=== PATIENT | female | born 1970 | race Caucasian/White ===

== ENCOUNTER 2024-09-03 15:18 | Inpatient (IN) | payer MEDICAID, OTHER ==
[~2024-09-03] VITALS: Ht 162.6 cm; Wt 75.7 kg
[2024-09-03 15:30] VITALS: BP 140/89; PULSE 75; RESP 16; TEMP 98; O2SAT 98
[2024-09-03 16:12] LABS: BASOPHILS # (AUTO) 0.1 K/uL (0.00-0.22); BASOPHILS % (AUTO) 0.7 % (0.0-2.0); EOSINOPHILS # (AUTO) 0.2 K/uL (0-0.4); EOSINOPHILS % (AUTO) 2.6 % (0.0-4.0); HEMATOCRIT 41.8 % (36-48); LYMPHOCYTES # (AUTO) 1.6 K/uL (2.5-16.5); MEAN CORPUSCULAR HEMOGLOBIN 29 pg (27-31); MEAN CORPUSCULAR HGB CONC 34 g/dL (33-37); MEAN CORPUSCULAR VOLUME 85.7 fL (80-94); MONOCYTES # (AUTO) 0.5 K/uL (0.8-1.0); MONOCYTES % (AUTO) 5.8 % (1.7-9.3); NEUTROPHILS # (AUTO) 6.4 K/uL (1.8-7.7); NEUTROPHILS % (AUTO) 72.9 % (42.2-75.2); PLATELET COUNT (AUTO) 254 K/uL (140-450); RED BLOOD CELL COUNT(AUTO) 4.88 MIL/uL (4.20-5.40); RED CELL DISTRIBUTION WIDTH 14.2 % (11.6-13.7); WHITE BLOOD COUNT (AUTO) 8.8 K/uL (4.8-10.8)
[2024-09-03 16:27] LABS: ANION GAP 10.2 (8-16); CALCIUM 8.8 mg/dL (8.5-10.1); CARBON DIOXIDE 29.8 mmol/L (21-32); CREATININE 0.9 mg/dL (0.6-1.3)
[2024-09-03 16:57] LABS: APPEARANCE,URINE CLEAR (CLEAR); BILIRUBIN,URINE NEGATIVE (NEGATIVE); BLOOD, URINE NEGATIVE (NEGATIVE); COLOR,URINE YELLOW (YELLOW); LEUKOCYTE ESTERASE ,URINE NEGATIVE (NEGATIVE); NITRITE, URINE NEGATIVE (NEGATIVE); PROTEIN,URINE NEGATIVE (NEGATIVE); UGLUCOSE NEGATIVE (NEGATIVE); UROBILINOGEN,URINE 0.2 EU/dL (0.2 - 1)
[2024-09-03 17:17] LABS: INR 0.99 (0.8-1.2); PARTIAL THROMBOPLASTIN TIME 27.4 secs (22-35.6); PROTHROMBIN TIME 10.4 secs (10.8-13.4)
[2024-09-03] MEDS: ASPIRIN 325 MG TAB PO ONE (18:03)
[2024-09-03] MEDS: CLOPIDOGREL 75 MG TAB PO ONE (18:05)
[2024-09-03] MEDS ORDERED: ONDANSETRON 4 MG/2 ML VIAL IVP PRN (18:40)
[2024-09-03] MEDS ORDERED: ZOLPIDEM 5 MG TAB PO PRN (18:40)
[2024-09-03] MEDS ORDERED: ACETAMINOPHEN 325 MG TAB PO PRN (18:40)
[2024-09-03] MEDS ORDERED: LORazepam 1 MG TAB PO PRN (18:40)
[2024-09-03 20:50] VITALS: BP 144/78; PULSE 55; PULSE 56; RESP 16; TEMP 97.6; O2SAT 97
[2024-09-03] MEDS: ATORVASTATIN 20 MG TAB PO SCH (21:17)
[2024-09-04] VITALS (7 sets, daily range): BP systolic 121–151; BP diastolic 71–83; PULSE 54–70; RESP 16–18; TEMP 97.2–98.9; O2SAT 95–99
[2024-09-04] MEDS: ASPIRIN 81 MG TAB.CHEW PO SCH (08:28)
[2024-09-04] MEDS: DOCUSATE SODIUM 100 MG GELCAP PO SCH (08:28)
[2024-09-04 16:03] LABS: BASOPHILS # (AUTO) 0.1 K/uL (0.00-0.22); BASOPHILS % (AUTO) 0.8 % (0.0-2.0); EOSINOPHILS # (AUTO) 0.4 K/uL (0-0.4); EOSINOPHILS % (AUTO) 4.3 % (0.0-4.0); HEMATOCRIT 40.3 % (36-48); HEMOGLOBIN 13.6 g/dL (12.0-16.0); LYMPHOCYTES # (AUTO) 1.7 K/uL (2.5-16.5); LYMPHOCYTES % (AUTO) 18.9 % (20.5-51.1); MEAN CORPUSCULAR HEMOGLOBIN 29 pg (27-31); MEAN CORPUSCULAR HGB CONC 34 g/dL (33-37); MEAN CORPUSCULAR VOLUME 85.5 fL (80-94); MONOCYTES # (AUTO) 0.7 K/uL (0.8-1.0); MONOCYTES % (AUTO) 7.3 % (1.7-9.3); NEUTROPHILS # (AUTO) 6.3 K/uL (1.8-7.7); NEUTROPHILS % (AUTO) 68.7 % (42.2-75.2); PLATELET COUNT (AUTO) 242 K/uL (140-450); RED BLOOD CELL COUNT(AUTO) 4.71 MIL/uL (4.20-5.40); RED CELL DISTRIBUTION WIDTH 14.2 % (11.6-13.7); WHITE BLOOD COUNT (AUTO) 9.2 K/uL (4.8-10.8)
[2024-09-04 16:45] LABS: ANION GAP 14.7 (8-16); CALCIUM 8.4 mg/dL (8.5-10.1); CARBON DIOXIDE 25.1 mmol/L (21-32); POTASSIUM 3.8 mmol/L (3.5-5.1)
[2024-09-05] VITALS (7 sets, daily range): BP systolic 107–145; BP diastolic 57–90; PULSE 54–98; RESP 18–20; TEMP 96.9–98.9; O2SAT 95–99
[2024-09-06] VITALS: BP 135/61; PULSE 59; RESP 18; TEMP 98; O2SAT 95
[2024-09-06 04:00] VITALS: BP 116/86; PULSE 59; RESP 18; TEMP 97.2; O2SAT 96
[2024-09-06 08:00] VITALS: BP 133/79; PULSE 60; PULSE 73; RESP 18; TEMP 97.6; O2SAT 96; O2SAT 97
[2024-09-06] MEDS ORDERED: ATOR40TA40 PO (12:05)
[2024-09-06] MEDS ORDERED: CLOP-68 PO (12:05)
[2024-09-06] MEDS ORDERED: ASPI81CT95 PO (12:05)
[2024-09-06 13:21] VITALS: BP 133/79; PULSE 18; RESP 60; TEMP 97.6
[2024-09-06 16:00] VITALS: BP 148/91; PULSE 88; RESP 18; TEMP 97.5; O2SAT 96
[2024-09-06] MEDS ORDERED: LOSA-272 PO (17:55)
== END 2024-09-06 18:40 | disposition home or self-care (01) | DRG 45 ==
LOC: MED 15:18 → MTU 19:47
PROVIDERS: ADMIT Internal Medicine; ATTEND Internal Medicine
DX: I63.9 Cerebral infarction, unspecified (principal); G81.94 Hemiplegia, unspecified affecting left nondominant side; R29.703 NIHSS score 3
CPT/HCPCS: 36415; 70450; 71045; 80048; 81003; 82948; 84484; 85025; 85610; 85730; 86886; 86900; 86901; 87081; 92526; 93005; 97110; 97116; 97163-GP; 97530; 99291; Q0092; Q9967